=== PATIENT | female | born 1990 | race Caucasian/White ===

== ENCOUNTER 2020-09-24 07:06 | Inpatient (IN) ==
[2020-09-24] MEDS ORDERED: OXYTOCIN 30 UNITS/500 ML BAG IV PRN ×2 (07:45→14:06)
[2020-09-24] MEDS: LACTATED RINGER'S 1,000 ML IV PRN ×2 (08:08→09:02)
[2020-09-24 08:12] LABS: Hematocrit (blood only) 34.6 % (37-47); Mean Corpuscular Hemoglobin 33.1 pg (25-34); Mean Corpuscular Hgb Conc 34.7 g/dL (32-36); Mean Corpuscular Volume 95.6 fL (80-100); Mean Platelet Volume 9.9 fL (7.4-10.4); Platelet Count 248 K/uL (130-400); RDW Coefficient of Variation 13.6 % (11.5-14.5); RDW Standard Deviation 47.4 fL (36.4-46.3); Red Blood Count 3.62 M/uL (4.2-5.4); White Blood Count 20.94 K/uL (4.8-10.8)
[2020-09-24] MEDS ORDERED: fentaNYL 2MCG/ML ROPIVACAINE 1.25MG/ML 100 ML BAG EPI ONE (08:15)
[2020-09-24] MEDS ORDERED: fentaNYL citrate 100 MCG/2 ML VIAL ONE (08:15)
[2020-09-24] MEDS ORDERED: SODIUM CHLORIDE 0.9% INJ 10 ML VIAL ONE (08:15)
[2020-09-24] MEDS ORDERED: BUPIVACAINE 0.25% 30 ML VIAL ONE (08:15)
[2020-09-24] MEDS ORDERED: ePHEDrine sulfate 50 MG/ML AMP ONE (08:15)
--- NOTE | 2020-09-24 08:23 | Ultrasound Report ---
US OB limited CLINICAL HISTORY: Evaluate position. COMPARISON STUDY: None. FINDINGS: Transabdominal scanning of the fetus was performed to evaluate position. The fetus is in a cephalic presentation. heart rate is 112 beats per minutes. A anatomic survey was n ot performed. IMPRESSION: The fetus is in a cephalic presentation. ACT 112: Negative or not required by law. Electronically signed by: John Mazariegos M.D. 09/24/2020 8:21 AM
[2020-09-24 08:30] LABS: Albumin Level 2.9 gm/dl (3.4-5.0); BUN Creatinine Ratio 25.9 (10-20); Calcium 8.8 mg/dl (8.5-10.1); Creatinine Clr Calc Pharmacy 140.2 ml/min; Est GFR (African American) 148.4 ml/min; Est GFR (Non-African American) 128.1 ml/min; Potassium 3.8 mmol/L (3.5-5.1)
[2020-09-24 08:33] LABS: Albumin Globulin Ratio 0.7 (0.9-2); Bilirubin,Total 0.2 mg/dl (0.2-1); Total Protein 6.9 gm/dl (6.4-8.2)
[2020-09-24 09:35] LABS: Amphetamines+Metham, Urine Neg (Neg); Barbiturates, Urine Neg (Neg); Benzodiazepine, Urine Neg (Neg); Cocaine, Urine Neg (Neg); MDMA (Ecstacy), Urine Neg (Neg); Methadone, Urine Neg (Neg); Opiate, Urine Neg (Neg); Phencyclidine, Urine Neg (Neg)
--- NOTE | 2020-09-24 11:04 | Progress Note ---
Date of Service September 24, 2020 Assessment & Plan Admission and Anticipated Discharge Date Admission Date: September 24, 2020 Subjective Met pt ans spouse pt is resting comfortably admitted for labor last exam by nurse; 7cm Results & Data ([facility]) Vital Signs (Past 12 Hours) Vital Signs Temp Pulse Resp BP Pulse Ox 09/24/20 11:03 59 L 99 09/24/20 10:58 67 101/54 L 98 09/24/20 10:53 60 99 09/24/20 10:48 60 99 09/24/20 10:45 56 L 102/53 L 09/24/20 10:43 61 100 09/24/20 10:38 62 100 09/24/20 10:33 58 L 100 09/24/20 10:30 58 L 18 109/56 L 09/24/20 10:28 58 L 99 09/24/20 10:23 62 99 09/24/20 10:18 59 L 100 09/24/20 10:15 20 09/24/20 10:13 67 101/55 L 100 09/24/20 10:08 63 94/51 L 100 09/24/20 10:04 62 110/61 09/24/20 10:03 61 100 09/24/20 10:00 20 09/24/20 09:58 67 107/64 100 09/24/20 09:54 60 107/57 L 09/24/20 09:53 61 99 09/24/20 09:49 65 101/64 09/24/20 09:48 65 100 09/24/20 09:45 62 20 111/61 09/24/20 09:43 63 100 09/24/20 09:38 65 115/55 L 100 09/24/20 09:33 66 106/57 L 99 09/24/20 09:30 18 09/24/20 09:29 57 L 112/60 09/24/20 09:28 64 100 09/24/20 09:23 62 113/56 L 100 09/24/20 09:18 62 100 09/24/20 09:16 64 121/58 L 09/24/20 09:15 66 20 118/63 09/24/20 09:13 70 100 09/24/20 09:12 67 127/72 09/24/20 09:11 68 120/73 09/24/20 09:08 66 125/69 100 09/24/20 09:07 68 118/61 09/24/20 09:04 72 150/68 H 09/24/20 09:03 70 134/69 100 09/24/20 09:00 76 18 140/80 09/24/20 08:58 77 100 09/24/20 08:57 72 195/113 H 09/24/20 08:53 72 100 09/24/20 08:48 72 100 09/24/20 08:43 64 100 09/24/20 08:38 79 100 09/24/20 08:33 62 100 09/24/20 07:58 64 140/88 09/24/20 07:45 63 160/83 H 09/24/20 07:28 63 140/69 09/24/20 07:13 61 150/85 H 09/24/20 07:11 36.6 C 18
[2020-09-24] MEDS ORDERED: NALOXONE HCL 0.4 MG/1 ML VIAL/CARP IV PRN (11:20)
[2020-09-24] MEDS ORDERED: fentaNYL 2MCG/ML ROPIVACAINE 1.25MG/ML 100 ML BAG EPI PRN (11:20)
[2020-09-24] MEDS ORDERED: NALOXONE HCL 1 MG in SODIUM CHLORIDE 0.9% 1000ML 1,000 ML IV PRN (11:20)
[2020-09-24] MEDS ORDERED: diphenhydrAMINE 50 MG/ML VIAL IV PRN (11:20)
[2020-09-24] MEDS ORDERED: ePHEDrine sulfate 50 MG/ML AMP IV PRN (11:20)
[2020-09-24] MEDS ORDERED: ONDANSETRON INJ 2 MG/ML 2 ML VIAL IV PRN (11:20)
--- NOTE | 2020-09-24 11:20 | Anesthesiology Consultation ---
Date of Service September 24, 2020 Assessment & Plan (1) Encounter for pre-operative examination: Chart Review Chart Review: Acceptable Risk for Surgery and Patient NOT seen in Pre Admission Testing Consults Requested none ASA ASA2 Proposed Anesthesia Anesthesia Type: Labor Epidural Risk / Benefits Reviewed With: PT / POA / Parent / Guardian, Accepts Plan and Informed Consent Obtained History Height/Weight Height: 5 ft 1 in Weight: 65.771 kg Allergies Allergy/AdvReac Type Severity Reaction Status Date / Time No Known Allergies Allergy Verified 09/24/20 07:21 Medications Home Medications Medication Instructions Recorded Confirmed Last Taken acetaminophen [Tylenol Extra 500 mg PO Q6H PRN 09/24/20 09/24/20 Unknown Strength] diphenhydramine HCl [Benadryl] 25 mg PO HS 09/24/20 09/24/20 Unknown iron,carbonyl-vitamin C [Vitron-C] 1 tab PO BID 09/24/20 09/24/20 09/23/20 08:00 Active Medications Generic Name Dose Route Start Last Admin Trade Name Freq PRN Reason Stop Dose Admin Lactated Ringer's 1,000 mls @ 125 mls/hr 09/24/20 07:45 09/24/20 09:03 Lr IV 09/26/20 07:44 125 mls/hr .Q8H PRN Infusion L&D Protocol Protocol NPO Date Last Intake of Fluids: 09/24/20 Time Last Intake of Fluids: 08:00 Date Last Intake of Solids: 09/23/20 Time Last Intake of Solids: 21:00 Past Medical History Medical History History of COVID-19 No pertinent past medical history Exercise / Class Metabolic Activity II 4-5 Yardwork/Stairs/Walk up hill Past Surgical History Surgical History History of ankle surgery cherelle and screws 2019 Past Anesthesia History No Hx of Anesthesia Complications and No Family Hx of Anesthesia Complications History of PONV No Hx of PONV and No Hx of Motion Sickness Social History Smoking Status: Former smoker tobacco type: cigarettes Smoking End Date: stopped smoking approx 1 month ago Hx Alcohol Use: No Hx Substance Use: Yes substance use type: marijuana Last Used Substance: Days (ago) Last Used Substance Other:: last used 09/23/20 using "couple times per week" Physical Exam Vital Signs Last Vital Signs Temp 36.6 C 09/24/20 07:11 Pulse 58 L 09/24/20 11:13 Resp 18 09/24/20 10:30 BP 108/58 L 09/24/20 11:13 Pulse Ox 99 09/24/20 11:13 ENMT Mouth: no dentition abnormality Thyromental Distance: > or= 3.5 Finger Breadths Mallampati Class: II Neck normal visual inspection Respiratory normal respiratory effort Auscultation: lungs clear to auscultation bilaterally Cardiovascular Rate/Rhythm: regular rate and regular rhythm Psychiatric Orientation: alert Lab Results Anesthesia Preop Results Results Anesthesia Widget: WBC 20.94 K/uL (4.8-10.8) H 09/24/20 Hgb 12.0 g/dL (12.0-16.0) 09/24/20 Hct 34.6 % (37-47) L 09/24/20 Plt 248 K/uL (130-400) 09/24/20 Na 137 mmol/L (136-145) 09/24/20 K 3.8 mmol/L (3.5-5.1) 09/24/20 Cl 108 mmol/L (98-107) H 09/24/20 CO2 19 mmol/L (21-32) L 09/24/20 BUN 13 mg/dl (7-18) 09/24/20 Creat 0.50 mg/dl (0.6-1.2) L 09/24/20 Glucose Level 83 mg/dl (70-99) 09/24/20 Testing Laboratory Results 09/24/20 07:59 09/24/20 07:59
[2020-09-24] MEDS ORDERED: METHYLERGONOVINE MALEATE 0.2 MG/ML AMP ONE (14:00)
[2020-09-24] MEDS ORDERED: HYDROCORTISONE ACETATE 25 MG SUPP PR PRN (14:06)
[2020-09-24] MEDS ORDERED: BENZOCAINE 20% AER SPR 82.5 GM CAN EXT PRN (14:06)
[2020-09-24] MEDS ORDERED: miSOPROStoL 100 MCG TAB PR ONE (14:06)
[2020-09-24] MEDS ORDERED: DIPHTHERIA/TETANUS/PERTUSSIS 0.5 ML SYR/VIAL IM ONE (14:06)
[2020-09-24] MEDS ORDERED: METHYLERGONOVINE MALEATE 0.2 MG/ML AMP IM ONE (14:06)
[2020-09-24] MEDS ORDERED: SUPERCREAM 0.870% 15 GM JAR EXT PRN (14:06)
[2020-09-24] MEDS ORDERED: ACETAMINOPHEN 325 MG TAB PO PRN (14:06)
[2020-09-24] MEDS ORDERED: bisacodyL 10 MG SUPP PR PRN (14:06)
--- NOTE | 2020-09-24 15:21 | Delivery Summary ---
DELIVERY NOTE: The patient delivered a live infant female in left occiput anterior presentation. There was no nucha l cord. Infant was delivered and placed on mother's abdomen. Delayed cord clamping was performed. Cord blood was obtained. Placenta spontaneously delivered. Inspection of the placenta shows a gray l looking placenta. Inspection of the perineum shows a first-degree midline laceration repaired with 2-0 Vicryl. Rectal exam post-repair shows no sutures palpated in the rectum. Good sphincter tone. All instruments were removed from the vagina including sutures and sponges accounted for x2. There w as good hemostasis. The patient and baby are doing well in recovery. Job ID: [id number]
--- NOTE | 2020-09-24 15:29 | Anesthesia Procedure Note ---
Date of Service September 24, 2020 Anesthesia Post Epidural Note Vital Signs Vital Signs: Temp Pulse Resp BP Pulse Ox 36.8 C 53 L 22 153/71 H 100 09/24/20 13:00 09/24/20 15:23 09/24/20 13:30 09/24/20 15:23 09/24/20 14:00 Pain Intensity Abdomen: Pain Intensity: 3 Notes Mental Status: alert / awake / arousable and participated in evaluation Nausea / Vomiting: adequately controlled Pain: adequately controlled Airway Patency, RR, SpO2: stable & adequate BP & HR: stable & adequate Hydration State: stable & adequate Neuraxial Anesthesia: was administered and sensory block is resolving Anesthetic Complications: no major complications apparent and Pt Satisfied with anesthetic care Epidural: Removed without complications and With tip intact Notes: Epidural site clean, dry and intact. No signs of edema, erythema or bruising at insertion site. Pt instructed to request anesthesia if she has residual lower extremity numbness or if she develops lower extremity pain or weakness, back pain or headache.
[2020-09-24] MEDS: IBUPROFEN 600 MG TAB PO PRN (17:32)
[2020-09-24] MEDS: DOCUSATE SODIUM 100 MG CAP PO SCH (20:46)
[2020-09-25] MEDS: IBUPROFEN 600 MG TAB PO PRN ×2 (00:26→04:53)
[2020-09-25 06:54] LABS: Hematocrit (blood only) 34.3 % (37-47); Hemoglobin 11.7 g/dL (12.0-16.0); Mean Corpuscular Hemoglobin 32.6 pg (25-34); Mean Corpuscular Hgb Conc 34.1 g/dL (32-36); Mean Corpuscular Volume 95.5 fL (80-100); Mean Platelet Volume 10.3 fL (7.4-10.4); Platelet Count 209 K/uL (130-400); RDW Coefficient of Variation 13.6 % (11.5-14.5); RDW Standard Deviation 47.7 fL (36.4-46.3); Red Blood Count 3.59 M/uL (4.2-5.4); White Blood Count 16.41 K/uL (4.8-10.8)
[2020-09-25] MEDS ORDERED: FERROUS SULFATE 325 MG TAB PO SCH (08:00)
[2020-09-25] MEDS ORDERED: PRENATAL VITAMIN 1 TAB PO SCH (08:00)
[2020-09-25] MEDS: DOCUSATE SODIUM 100 MG CAP PO SCH (08:20)
--- NOTE | 2020-09-25 08:31 | Obstetrical Progress Note ---
Date of Service September 25, 2020 Subjective Ambulation: ambulating normally Voiding: no voiding problems Passing Gas:: Yes Diet Tolerance:: regular diet Lochia:: Small Feeding Type:: bottle feeding abdomen soft and non-tender fundus firm no edema neg Gael's tent d/c in AM Results & Data ([facility]) Vital Signs (Past 12 Hours) Vital Signs Temp Pulse Resp BP Pulse Ox 09/25/20 07:51 36.5 C 60 18 112/71 99 09/25/20 04:45 36.4 C L 57 L 16 143/77 H 100 09/25/20 00:25 36.4 C L 67 17 121/69 99 09/24/20 20:40 36.6 C 56 L 16 145/75 H 99 Laboratory Results Laboratory Results - last 72 hr 09/24/20 09/24/20 09/24/20 07:59 07:59 08:30 WBC 20.94 H RBC 3.62 L Hgb 12.0 Hct 34.6 L MCV 95.6 MCH 33.1 MCHC 34.7 RDW Std Deviation 47.4 H RDW Coeff of Lovely 13.6 Plt Count 248 MPV 9.9 Sodium 137 Potassium 3.8 Chloride 108 H Carbon Dioxide 19 L Anion Gap 10.0 BUN 13 Creatinine 0.50 L Est Cr Clr Drug Dosing 140.2 Est GFR ( Amer) 148.4 Est GFR (Non-Af Amer) 128.1 BUN/Creatinine Ratio 25.9 H Glucose 83 Calcium 8.8 Total Bilirubin 0.2 AST 6 L ALT 8 L Alkaline Phosphatase 75 Total Protein 6.9 Albumin 2.9 L Globulin 4.0 Albumin/Globulin Ratio 0.7 L Urine Opiates Screen Neg Ur Methadone, Qual Neg Urine Barbiturates Neg Ur Phencyclidine (PCP) Neg U Amphetamin/Meth Scrn Neg MDMA (Ecstasy) Screen Neg U Benzodiazepines Scrn Neg Ur Cocaine Metabolite Neg U Marijuana (THC) Screen Pos H 09/25/20 06:17 WBC 16.41 H RBC 3.59 L Hgb 11.7 L Hct 34.3 L MCV 95.5 MCH 32.6 MCHC 34.1 RDW Std Deviation 47.7 H RDW Coeff of Lovely 13.6 Plt Count 209 MPV 10.3 Sodium Potassium Chloride Carbon Dioxide Anion Gap BUN Creatinine Est Cr Clr Drug Dosing Est GFR ( Amer) Est GFR (Non-Af Amer) BUN/Creatinine Ratio Glucose Calcium Total Bilirubin AST ALT Alkaline Phosphatase Total Protein Albumin Globulin Albumin/Globulin Ratio Urine Opiates Screen Ur Methadone, Qual Urine Barbiturates Ur Phencyclidine (PCP) U Amphetamin/Meth Scrn MDMA (Ecstasy) Screen U Benzodiazepines Scrn Ur Cocaine Metabolite U Marijuana (THC) Screen
[2020-09-25] MEDS ORDERED: bisacodyL 5 MG TABEC PO SCH (20:00)
[2020-09-26 10:42] LABS: Marijuana Quant, GCMS Urine 240 ng/mL (<5)
== END 2020-09-25 15:31 | disposition home or self-care (01) | DRG 807 ==
LOC: OPB 07:06 → 4S1 07:08 → 4S2 16:31